=== PATIENT | male | born 1970 | race Caucasian/White ===

== ENCOUNTER → 2024-03-06 | Outpatient (REF) | payer BC ==
[2024-03-06 17:49] LABS: APPEARANCE, URINE MANUAL CLEAR (CLEAR); COLOR, URINE MANUAL ORANGE (YELLOW)
[2024-03-06 17:56] LABS: BILIRUBIN, URINE MANUAL OBSCURED (NEGATIVE); BLOOD URINE MANUAL POSITIVE (NEGATIVE); GLUCOSE, URINE (UA) MANUAL OBSCURED mg/dL (NEGATIVE); KETONE, URINE MANUAL OBSCURED mg/dL (NEGATIVE); LEUKOCYTE ESTERASE, URINE MAN OBSCURED (NEGATIVE); NITRITE, URINE MANUAL OBSCURED (NEGATIVE); PROTEIN, URINE MANUAL OBSCURED mg/dL (NEGATIVE); SPECIFIC GRAVITY,URINE MANUAL 1.025 (1.002-1.035); UROBILINOGEN, URINE MANUAL OBSCURED mg/dl (NORMAL)
[2024-03-06 18:10] LABS: BACTERIA, URINE SMALL AMOUNT; HYALINE CAST, URINE 40-50 /lpf (0-1); SQUAMOUS EPITHELIAL CELL URINE SMALL AMOUNT /hpf (SMALL AMT)
[2024-03-06 18:11] LABS: AMORPHOUS SEDIMENT, URINE MOD AMOUNT (NEGATIVE); MUCUS, URINE LARGE AMOUNT (NEGATIVE)
== END ==
LOC: M LAB REF 17:14
PROVIDERS: ATTEND Physician Assistant Medical
DX: N39.0 Urinary tract infection, site not specified (principal)

== ENCOUNTER 2024-11-09 16:42 | Emergency (ER) | payer BC ==
[~2024-11-09] VITALS: Ht 177.8 cm; Wt 86.0 kg
[2024-11-09 18:10] LABS: KETONE, URINE AUTO RFX TRACE mg/dL (NEGATIVE); LEUKOCYTE ESTERASE UR AUTO RFX NEGATIVE (NEGATIVE); MUCUS, URINE RFX SMALL (NEGATIVE); NITRITE, URINE AUTO RFX NEGATIVE (NEGATIVE); RBC, URINE AUTO RFX TNTC /HPF (0-3); SQUAM EPITHELIAL CELL UR AURFX 0 /HPF (0-6); WBC, URINE AUTO RFX 0 /HPF (0-3)
[2024-11-09 18:39] LABS: BASO # 0.1 10^3/uL (0.0-0.2); BASO % 0.8 % (0.0-1.0); EOS # 0.3 10^3/uL (0.0-0.5); EOS % 4.2 % (0.0-3.0); HEMATOCRIT 34.7 % (42.0-52.0); HEMOGLOBIN 11.5 g/dl (13.5-17.5); LYMPH # 2.3 10^3/uL (1.5-5.0); LYMPH % 37.2 % (24.0-44.0); MEAN CORPUSCULAR HEMOGLOBIN 32.7 pg (27.0-33.0); MEAN CORPUSCULAR HGB CONC 33.1 g/dl (32.0-36.5); MEAN CORPUSCULAR VOLUME 98.6 fl (80.0-96.0); MONO # 0.5 10^3/uL (0.0-0.8); MONO % 7.4 % (2.0-8.0); NEUTROPHILS # 3.1 10^3/uL (1.5-8.5); NEUTROPHILS % 50.1 % (36.0-66.0); PLATELET COUNT, AUTOMATED 227 10^3/uL (150-450); RED BLOOD COUNT 3.52 10^6/uL (4.30-6.10); WHITE BLOOD COUNT 6.2 10^3/uL (4.0-10.0)
[2024-11-09 19:05] LABS: BLOOD UREA NITROGEN 14 MG/DL (9-23); CALCIUM LEVEL 8.7 MG/DL (8.5-10.1); CARBON DIOXIDE LEVEL 29 MMOL/L (20-31); CHLORIDE LEVEL 106 MMOL/L (98-107); CREATININE FOR GFR 0.96 MG/DL (0.70-1.30); GLOMERULAR FILTRATION RATE > 60.0 (>56); GLUCOSE, FASTING 77 MG/DL (60-100); POTASSIUM SERUM 4.3 MMOL/L (3.5-5.1); SODIUM LEVEL 143 MMOL/L (136-145)
[2024-11-09 19:44] VITALS: TEMP 96.9
[2024-11-09 20:42] VITALS: O2SAT 93
[2024-11-09 20:45] VITALS: BP 123/74
[2024-11-09] MEDS ORDERED: FLOM0.4C39 PO (20:57)
[2024-11-09] MEDS: TAMSULOSIN 0.4 MG CAP PO ONE (21:04)
== END 2024-11-09 21:09 | disposition home or self-care (01) ==
LOC: M ED 16:42
DX: R10.84 Generalized abdominal pain (principal); N20.0 Calculus of kidney; R31.0 Gross hematuria; Z98.84 Bariatric surgery status; Z79.899 Other long term (current) drug therapy

== ENCOUNTER 2025-06-18 04:48 | Emergency (ER) | payer BC ==
[~2025-06-18] VITALS: Ht 167.6 cm; Wt 70.5 kg
[~2025-06-18 04:48] MED LIST: TAMS-18 PO
[2025-06-18] MEDS ORDERED: LUNE2TAB28 PO ×2 (04:55→09:58)
[2025-06-18] MEDS ORDERED: CITA10TA7 PO (04:55)
[2025-06-18 05:36] LABS: BASO # 0.1 10^3/uL (0.0-0.2); BASO % 0.7 % (0.0-1.0); EOS # 0.2 10^3/uL (0.0-0.5); EOS % 2.4 % (0.0-3.0); LYMPH # 1.7 10^3/uL (1.5-5.0); LYMPH % 21.9 % (24.0-44.0); MONO # 0.5 10^3/uL (0.0-0.8); MONO % 6.1 % (2.0-8.0); NEUTROPHILS # 5.2 10^3/uL (1.5-8.5); NEUTROPHILS % 68.2 % (36.0-66.0); PLATELET COUNT, AUTOMATED 176 10^3/uL (150-450)
[2025-06-18 06:04] LABS: CK-MB VALUE MASS 1.4 NG/ML (<3.6)
[2025-06-18 06:05] LABS: CALCIUM LEVEL 8.3 MG/DL (8.5-10.1); CARBON DIOXIDE LEVEL 28 MMOL/L (20-31); CHLORIDE LEVEL 107 MMOL/L (98-107); CREATININE FOR GFR 0.96 MG/DL (0.70-1.30); GLOMERULAR FILTRATION RATE > 90.0 (>56); POTASSIUM SERUM 3.7 MMOL/L (3.5-5.1); SODIUM LEVEL 145 MMOL/L (136-145)
[2025-06-18 06:08] LABS: CPK CREATINE PHOSPHOKINASE 77 U/L (46-171); MB/CK RELATIVE INDEX 1.81 (< OR =4)
[2025-06-18] MEDS: ASPIRIN 81 MG CHEWABLE TABLET PO ONE (06:17)
[2025-06-18 06:38] VITALS: BP 126/83
[2025-06-18] MEDS: NITROGLYCERIN 0.4 MG SUBL TABLET SL PRN (06:38)
[2025-06-18] MEDS ORDERED: ISOVUE-370 76% 100 ML VIAL As Ordered ONE (06:43)
[2025-06-18] MEDS: PANTOPRAZOLE 40MG VIAL IV ONE (06:46)
[2025-06-18] MEDS: NS (Normal Saline) 0.9% 1,000 ML IV ONE (06:49)
[2025-06-18 07:23] LABS: CK-MB VALUE MASS 1.2 NG/ML (<3.6)
[2025-06-18 07:25] LABS: ALT/SGPT 72.0 U/L (7.0-40); AST/SGOT 125.0 U/L (<34); CPK CREATINE PHOSPHOKINASE 70.0 U/L (46-171); MB/CK RELATIVE INDEX 1.71 (< OR =4)
[2025-06-18] MEDS: PIPERACILLIN/TAZOBACTAM SOD 4.5 GM in DEXTROSE 5% (D5W) ADV/MINI-BAG 50 ML IV ONE (09:45)
[2025-06-18] MEDS ORDERED: LISI20TA33 PO (09:58)
[2025-06-18] MEDS ORDERED: VENTAER INH (09:58)
[2025-06-18] MEDS ORDERED: ADVA115A INH (09:58)
[2025-06-18] MEDS ORDERED: CITA20TA6 PO (09:58)
[2025-06-18] MEDS ORDERED: [UNRECOGNIZED DRUG - CODE] SQ (09:58)
[2025-06-18] MEDS ORDERED: IPRA0.00 INH (09:58)
[2025-06-18] MEDS ORDERED: HOME MED LIST COMPLETE! XX SCH (10:00)
[2025-06-18 12:02] LABS: CK-MB VALUE MASS 1.1 NG/ML (<3.6)
[2025-06-18 12:03] LABS: CPK CREATINE PHOSPHOKINASE 59 U/L (46-171); MB/CK RELATIVE INDEX 1.86 (< OR =4)
[2025-06-18] MEDS ORDERED: ASPI81TA26 PO (14:22)
[2025-06-18] MEDS ORDERED: ATOR1TAB21 PO (14:26)
[2025-06-18] MEDS ORDERED: ISOS1TAB35 PO (14:31)
[2025-06-18 14:53] LABS: CHOLESTEROL LEVEL 97 MG/DL (<200); CHOLESTEROL RISK RATIO 2.17 (<5); LDL CHOLESTEROL 44.6 MG/DL (<100); NON-HDL-C 52.4 MG/DL; TRIGLYCERIDES LEVEL 39 MG/DL (<150)
[2025-06-18 15:00] VITALS: BP 117/77
[2025-06-18 15:15] VITALS: TEMP 98.6; O2SAT 98
== END 2025-06-18 15:34 | disposition home or self-care (01) ==
LOC: M ED 04:48
DX: R07.9 Chest pain, unspecified (principal); K76.0 Fatty (change of) liver, not elsewhere classified; N20.0 Calculus of kidney; R74.01 Elevation of levels of liver transaminase levels; I20.0 Unstable angina; K80.20 Calculus of gallbladder without cholecystitis without obstruction; N40.0 Benign prostatic hyperplasia without lower urinary tract symptoms; K59.00 Constipation, unspecified; I45.10 Unspecified right bundle-branch block; K21.9 Gastro-esophageal reflux disease without esophagitis; J45.909 Unspecified asthma, uncomplicated; Z86.711 Personal history of pulmonary embolism; Z79.52 Long term (current) use of systemic steroids; Z79.82 Long term (current) use of aspirin; Z79.02 Long term (current) use of antithrombotics/antiplatelets; Z79.899 Other long term (current) drug therapy; Z98.84 Bariatric surgery status
CPT/HCPCS: 36415; 71045; 71275; 74177; 76705; 80048; 80061; 80076; 82550; 82553; 83690; 83880; 84443; 84484; 85025; 87040; 93005; 93041; 93306; 94760; 99285; J2470; J2543; Q9967

== ENCOUNTER → 2025-07-27 | Outpatient (CLI) | payer BC ==
[~2025-07-27] MED LIST changes: +ADVA115A INH; +ASPI81TA26 PO; +ATOR1TAB21 PO; +CITA10TA7 PO; +CITA20TA6 PO; +IPRA0.00 INH; +ISOS1TAB35 PO; +LISI20TA33 PO; +LUNE2TAB28 PO; +VENTAER INH; +[UNRECOGNIZED DRUG - CODE] SQ
== END ==
LOC: M CARPUL 08:22
PROVIDERS: ATTEND Internal Medicine Cardiovascular Disease
DX: R06.02 Shortness of breath (principal)

== ENCOUNTER → 2025-08-23 | Day surgery (SDC) | payer BC ==
[~2025-08-23] VITALS: Ht 177.8 cm; Wt 71.2 kg
[~2025-08-23] MED LIST changes: +ACETAMINOPHEN 1000MG/100ML IV BAG As Ordered ONE; +ECOT81TA5 PO; +KETOROLAC 30 MG/ML 1 ML VIAL As Ordered ONE; +MIDAZOLAM INJ 2 MG/2 ML VIAL As Ordered ONE; +MORPHINE 2 MG/ML 1 ML VIAL IV PRN; +ONDANSETRON 4MG/2ML VIAL As Ordered ONE; +ONDANSETRON 4MG/2ML VIAL IV PRN; +PHENYLephrine 500MCG 5ML (100MCG/ML) SYRINGE As Ordered ONE; +RIZA10TA2 PO; +ROCURONIUM BROMIDE 50MG/5ML VIAL As Ordered ONE; +SUGAMMADEX SODIUM 200 MG/2 ML VIAL As Ordered ONE; +dexAMETHasone 4 MG/ML 1 ML VIAL As Ordered ONE; +dexmedeTOMIDine (4 MCG/ML) 200 MCG/50 ML BTL As Ordered ONE
[2025-08-23] MEDS: INDOCYANINE GREEN 25 MG VIAL As Ordered ONE (12:36)
[2025-08-23] MEDS: LR 1,000 ML IV SCH (14:24)
[2025-08-23] MEDS: INDOCYANINE GREEN 25 MG VIAL IV ONE (17:08)
[2025-08-23] MEDS: ceFAZolin SOD 2 GM IV ONCE IV ONE (17:09)
[2025-08-23] MEDS: HEPARIN SOD 5000 UNITS/ML 1 ML VIAL/SYRINGE SQ ONE (17:20)
[2025-08-23] MEDS: HYDROMORPHONE HCL 0.5 MG/0.5 ML SYRINGE IV PRN (19:01)
[2025-08-23 20:47] VITALS: BP 121/63; TEMP 97.2; O2SAT 96
== END | disposition home or self-care (01) ==
LOC: M SDC 13:12
PROVIDERS: ATTEND Surgery
DX: K80.10 Calculus of gallbladder with chronic cholecystitis without obstruction (principal)
CPT/HCPCS: 47562; 88304; J0131; J0665; J0688; J1100; J1171; J1885; J2250; J2371; J2405; J2765; J3010; Q9968; S2900